=== PATIENT | male | born 1940 | race Caucasian/White ===

== ENCOUNTER 2018-08-15 10:34 | Inpatient (IN) ==
[2018-08-15] MEDS ORDERED: ALBUTEROL 2.5 MG/3 ML NEB RESP TX STA (10:53)
[2018-08-15 11:25] LABS: Basophils % 0.2 % (0.0-0.8); Eosinophils % 0.2 % (0.00-10.9); Hematocrit 36.9 VOL% (42.0-52.0); Hemoglobin 12.7 GM/DL (14.0-18.0); Immature Granulocytes % 0.3 %; Immature Granulocytes Absolute 0.03 #; Lymphocytes # 1.4 10*3/uL (1.4-4.0); Lymphocytes % 13.9 % (21.2-54.2); Mean Corpuscular HGB Conc 34.4 GM/DL (32-36); Mean Corpuscular Hemoglobin 33 PG (27-34); Mean Corpuscular Volume 96.9 FL (87-102); Monocytes # 1.4 10*3/uL (0.11-0.8); Monocytes % 13.4 % (1.7-12.7); Neutrophils # 7.4 10*3/uL (1.4-7.4); Platelet Count 129 T/CUMM (130-400); Red Blood Count 3.81 MC/CUMM (3.8-5.5); Red Cell Distribution Width 12.1 % (9.3-17.3); White Blood Count 10.3 T/CUMM (4-12)
[2018-08-15 11:33] LABS: INR 1.1; PT Patient Result 11.8 SECS; Partial Thromboplastin Time 26.8 SECS (0-40)
[2018-08-15 11:44] LABS: Albumin 3.3 G/DL (3.4-5.0); Bilirubin,Total 0.7 MG/DL (0.2-1.0); Calcium 9.7 MG/DL (8.5-10.1); Osmolality,Calculated 276.8 MOS/KG (273-304); Total Protein 6.3 G/DL (6.4-8.3)
[2018-08-15] MEDS ORDERED: LEVOFLOXACIN INJ 500 MG in PREMIX 1 EACH IV STA (12:52)
[2018-08-15] MEDS ORDERED: methylPREDNISolone SOD SUC 125 MG/2 ML VIAL IV STA (12:52)
[2018-08-15] MEDS ORDERED: cefTRIAXone 1,000 MG in SODIUM CHLORIDE 0.9% 100 ML IV SCH (14:30)
[2018-08-15] MEDS ORDERED: diphenhydrAMINE CAP 25 MG CAPSULE PO PRN (14:32)
[2018-08-15] MEDS ORDERED: ACETAMINOPHEN 325 MG TABLET PO PRN (14:32)
[2018-08-15] MEDS ORDERED: ONDANSETRON 4 MG/2 ML VIAL IV PRN (14:32)
[2018-08-15] MEDS ORDERED: ACETAMINOPHEN 500 MG TABLET PO PRN (14:32)
[2018-08-15 15:13] LABS: Risk Ratio 2.52; VLDL CHOLESTEROL 27.2 MG/DL
[2018-08-15] MEDS: methylPREDNISolone SOD SUC 40 MG/1 ML VIAL IV SCH ×2 (15:20→21:46)
[2018-08-15] MEDS: SODIUM CHLORIDE 0.9% 1,000 ML IV SCH (16:12)
[2018-08-15] MEDS: ASPIRIN EC 81 MG TABLET PO SCH (16:16)
[2018-08-15] MEDS: HEPARIN 5,000 UNIT/1 ML VIAL SUBCUT SCH ×2 (16:17→22:54)
[2018-08-15] MEDS: AZITHROMYCIN INJ 500 MG in SODIUM CHLORIDE 0.9% 250 ML IV SCH (16:51)
[2018-08-15] MEDS: ALBUTEROL/IPRATROPIUM 3 ML NEB RESP TX SCH (20:05)
[2018-08-15] MEDS: MONTELUKAST 10 MG TABLET PO SCH (21:45)
[2018-08-15] MEDS: traZODone 50 MG TABLET PO SCH (21:45)
[2018-08-15] MEDS: DOCUSATE SODIUM 100 MG CAPSULE PO SCH (21:45)
[2018-08-15] MEDS: LISINOPRIL 10 MG TABLET PO SCH (21:45)
[2018-08-15] MEDS: guaiFENesin/DM ER 600-30 MG TABLET PO SCH (21:45)
[2018-08-15] MEDS: ESCITALOPRAM 10 MG TABLET PO SCH (21:46)
[2018-08-15] MEDS: ATORVASTATIN 80 MG TABLET PO SCH (21:46)
[2018-08-16] MEDS: ALBUTEROL/IPRATROPIUM 3 ML NEB RESP TX SCH ×4 (00:48→19:51)
[2018-08-16] MEDS: cefTRIAXone 1,000 MG in SYRINGE 1 EACH IV SCH ×2 (04:16→16:30)
[2018-08-16 06:21] LABS: Basophils % 0.2 % (0.0-0.8); Hemoglobin 11.4 GM/DL (14.0-18.0); Immature Granulocytes % 0.9 %; Lymphocytes # 1.3 10*3/uL (1.4-4.0); Lymphocytes % 11.4 % (21.2-54.2); Mean Corpuscular HGB Conc 33.5 GM/DL (32-36); Mean Corpuscular Hemoglobin 33 PG (27-34); Mean Corpuscular Volume 97.4 FL (87-102); Mean Platelet Volume 10.7 FL (9.6-12.0); Monocytes # 0.7 10*3/uL (0.11-0.8); Monocytes % 5.9 % (1.7-12.7); Neutrophils # 9.6 10*3/uL (1.4-7.4); Neutrophils % 81.6 % (38.7-73.9); Platelet Count 130 T/CUMM (130-400); Red Blood Count 3.49 MC/CUMM (3.8-5.5); Red Cell Distribution Width 12.1 % (9.3-17.3); White Blood Count 11.8 T/CUMM (4-12)
[2018-08-16] MEDS: methylPREDNISolone SOD SUC 40 MG/1 ML VIAL IV SCH ×3 (06:29→23:28)
[2018-08-16] MEDS: SODIUM CHLORIDE 0.9% 1,000 ML IV SCH (06:36)
[2018-08-16 06:52] LABS: Albumin 2.8 G/DL (3.4-5.0); Bilirubin,Total 0.4 MG/DL (0.2-1.0); Calcium 10.1 MG/DL (8.5-10.1); Osmolality,Calculated 282.7 MOS/KG (273-304); Potassium 4.6 MMOL/L (3.5-5.1); Total Protein 6.4 G/DL (6.4-8.3)
[2018-08-16 07:14] LABS: Thyroid Stimulating Hormone 0.29 uIU/ml (0.358-3.74)
[2018-08-16] MEDS: PANTOPRAZOLE 40 MG TABLET PO SCH (09:22)
[2018-08-16] MEDS: DOCUSATE SODIUM 100 MG CAPSULE PO SCH ×2 (09:22→22:26)
[2018-08-16] MEDS: ASPIRIN EC 81 MG TABLET PO SCH (09:22)
[2018-08-16] MEDS: guaiFENesin/DM ER 600-30 MG TABLET PO SCH ×2 (09:22→23:27)
[2018-08-16] MEDS: HEPARIN 5,000 UNIT/1 ML VIAL SUBCUT SCH ×3 (09:42→23:29)
[2018-08-16] MEDS ORDERED: VANCOMYCIN INJ 1,250 MG in SODIUM CHLORIDE 0.9% 250 ML IV SCH (10:00)
[2018-08-16] MEDS: VANCOMYCIN INJ 1,500 MG in SODIUM CHLORIDE 0.9% 500 ML IV SCH ×2 (11:32→23:29)
[2018-08-16] MEDS: BUDESONIDE/FORMOTEROL 80-4.5 INHALER 6.9 GM INH SCH ×2 (13:15→22:27)
[2018-08-16] MEDS ORDERED: IPRATROPIUM 500 MCG/2.5 ML NEB RESP TX PRN (14:00)
[2018-08-16] MEDS: AZITHROMYCIN INJ 500 MG in SODIUM CHLORIDE 0.9% 250 ML IV SCH (14:24)
[2018-08-16] MEDS: MONTELUKAST 10 MG TABLET PO SCH (20:25)
[2018-08-16] MEDS: traZODone 50 MG TABLET PO SCH (22:26)
[2018-08-16] MEDS: ESCITALOPRAM 10 MG TABLET PO SCH (22:26)
[2018-08-16] MEDS: ATORVASTATIN 80 MG TABLET PO SCH (22:27)
[2018-08-16] MEDS: LISINOPRIL 10 MG TABLET PO SCH (22:27)
[2018-08-17] MEDS: SODIUM CHLORIDE 0.9% 1,000 ML IV SCH ×2 (00:24→12:55)
[2018-08-17] MEDS: ALBUTEROL/IPRATROPIUM 3 ML NEB RESP TX SCH ×3 (01:40→13:42)
[2018-08-17] MEDS: cefTRIAXone 1,000 MG in SYRINGE 1 EACH IV SCH (03:24)
[2018-08-17 06:48] LABS: Basophils % 0.1 % (0.0-0.8); Hematocrit 30.9 VOL% (42.0-52.0); Hemoglobin 10.3 GM/DL (14.0-18.0); Immature Granulocytes % 1.1 %; Immature Granulocytes Absolute 0.13 #; Lymphocytes # 0.7 10*3/uL (1.4-4.0); Mean Corpuscular HGB Conc 33.3 GM/DL (32-36); Mean Corpuscular Hemoglobin 33 PG (27-34); Mean Platelet Volume 10.7 FL (9.6-12.0); Monocytes # 0.9 10*3/uL (0.11-0.8); Monocytes % 7.6 % (1.7-12.7); Neutrophils # 10.4 10*3/uL (1.4-7.4); Neutrophils % 85.2 % (38.7-73.9); Platelet Count 141 T/CUMM (130-400); Red Blood Count 3.12 MC/CUMM (3.8-5.5); Red Cell Distribution Width 12.6 % (9.3-17.3); White Blood Count 12.2 T/CUMM (4-12)
[2018-08-17] MEDS: methylPREDNISolone SOD SUC 40 MG/1 ML VIAL IV SCH ×2 (06:52→15:46)
[2018-08-17] MEDS: HEPARIN 5,000 UNIT/1 ML VIAL SUBCUT SCH ×2 (06:55→15:46)
[2018-08-17 07:18] LABS: Albumin 2.6 G/DL (3.4-5.0); Bilirubin,Total 0.6 MG/DL (0.2-1.0); Calcium 9.3 MG/DL (8.5-10.1); Osmolality,Calculated 285.4 MOS/KG (273-304); Potassium 4.6 MMOL/L (3.5-5.1); Total Protein 5.7 G/DL (6.4-8.3)
[2018-08-17 07:36] LABS: Thyroid Stimulating Hormone 0.3 uIU/ml (0.358-3.74)
[2018-08-17] MEDS ORDERED: AZITHROMYCIN 250 MG TABLET PO SCH (09:00)
[2018-08-17] MEDS: DOCUSATE SODIUM 100 MG CAPSULE PO SCH (09:22)
[2018-08-17] MEDS: PANTOPRAZOLE 40 MG TABLET PO SCH (09:22)
[2018-08-17] MEDS: ASPIRIN EC 81 MG TABLET PO SCH (09:22)
[2018-08-17] MEDS: BUDESONIDE/FORMOTEROL 80-4.5 INHALER 6.9 GM INH SCH (09:23)
[2018-08-17] MEDS: VANCOMYCIN INJ 1,500 MG in SODIUM CHLORIDE 0.9% 500 ML IV SCH (09:27)
[2018-08-17] MEDS ORDERED: FINASTERIDE 5 MG TABLET PO SCH (12:00)
[2018-08-17] MEDS: guaiFENesin/DM ER 600-30 MG TABLET PO SCH (12:55)
[2018-08-17] MEDS ORDERED: NICOTINE 21 MG/24 HR PATCH TRANSDERM SCH (13:30)
[2018-08-17] MEDS ORDERED: DOCUSATE SODIUM 100 MG CAPSULE PO SCH (13:30)
[2018-08-17 15:00] VITALS: BP 104/60
[2018-08-17] MEDS ORDERED: TAMSULOSIN 0.4 MG CAPSULE PO SCH (21:00)
[2018-08-18] MEDS ORDERED: POLYETHYLENE GLYCOL POWDER 17 GM PACK PO SCH (09:00)
[2018-08-18] MEDS ORDERED: LEVOFLOXACIN 500 MG TABLET PO SCH (09:00)
== END 2018-08-17 16:15 | disposition home or self-care (01) | DRG 190 ==
LOC: N.ED 10:34 → N.EDINP 12:55 → N.5E 14:39
PROVIDERS: ADMIT Hospitalist; ATTEND Hospitalist

== ENCOUNTER 2019-10-16 08:51 | Inpatient (IN) ==
[2019-10-16] MEDS ORDERED: MORPHINE 4 MG/1 ML VIAL IV STA ×3 (09:14→09:41)
[2019-10-16] MEDS ORDERED: ONDANSETRON 4 MG/2 ML VIAL IV STA (09:16)
[2019-10-16] MEDS ORDERED: ceFAZolin 1,000 MG VIAL ONE (09:20)
[2019-10-16] MEDS ORDERED: MORPHINE 10 MG/1 ML VIAL ONE (09:21)
[2019-10-16] MEDS ORDERED: ONDANSETRON 4 MG/2 ML VIAL ONE (09:21)
[2019-10-16] MEDS: LACTATED RINGERS 1,000 ML IV SCH ×2 (09:25→13:00)
[2019-10-16 09:33] LABS: Basophils % 0.8 % (0.0-0.8); Eosinophils # 0.1 10*3/uL (0.0-0.87); Eosinophils % 2.5 % (0.00-10.9); Hematocrit 37.6 VOL% (42.0-52.0); Hemoglobin 12.8 GM/DL (14.0-18.0); Immature Granulocytes % 0.5 %; Immature Granulocytes Absolute 0.02 #; Lymphocytes # 0.7 10*3/uL (1.4-4.0); Lymphocytes % 19.3 % (21.2-54.2); Mean Platelet Volume 9.8 FL (9.6-12.0); Monocytes % 22.1 % (1.7-12.7); Neutrophils % 54.8 % (38.7-73.9); Platelet Count 180 T/CUMM (130-400); Red Blood Count 3.76 MC/CUMM (3.8-5.5); White Blood Count 3.7 T/CUMM (4-12)
[2019-10-16 09:54] LABS: Calcium 9.7 MG/DL (8.5-10.1); Osmolality,Calculated 274.8 MOS/KG (273-304)
[2019-10-16 09:54] LABS: Band Neutrophils 4 % (0-10); Eosinophils 4 % (0-10); Hypochromasia 1+; Lymphocytes 19 % (20-55); Platelet Estimate Adequate; Segmented Neutrophils 52 % (50-85); Total Cells Counted 100
[2019-10-16] MEDS ORDERED: MEPERIDINE 25 MG/1 ML VIAL ONE (10:01)
[2019-10-16] MEDS ORDERED: LORazepam 2 MG/1 ML VIAL ONE (10:02)
[2019-10-16] MEDS ORDERED: LORazepam 2 MG/1 ML VIAL IV STA (10:10)
[2019-10-16] MEDS ORDERED: MEPERIDINE 25 MG/1 ML VIAL IV STA (10:10)
[2019-10-16] MEDS ORDERED: KETOROLAC 15 MG/1 ML VIAL IV PRN (10:58)
[2019-10-16] MEDS ORDERED: ONDANSETRON 4 MG/2 ML VIAL IV PRN (10:58)
[2019-10-16] MEDS ORDERED: diphenhydrAMINE CAP 25 MG CAPSULE PO PRN (10:58)
[2019-10-16] MEDS ORDERED: MAGNESIUM HYDROXIDE SUSP 30 ML UDCUP PO PRN (10:58)
[2019-10-16] MEDS ORDERED: MORPHINE 4 MG/1 ML VIAL IV PRN ×2 (10:58)
[2019-10-16] MEDS ORDERED: fentaNYL 75 MCG/HR PATCH TRANSDERM SCH (11:00)
[2019-10-16] MEDS ORDERED: LACTATED RINGERS 1,000 ML IV SCH (11:00)
[2019-10-16] MEDS ORDERED: BACITRACIN OINT 0.9 GM PACK TOP ONE (12:41)
[2019-10-16] MEDS ORDERED: ROPIVACAINE 0.5% 30 ML VIAL ONE (13:10)
[2019-10-16] MEDS ORDERED: DEXAMETHASONE 4 MG/1 ML VIAL ONE (13:10)
[2019-10-16] MEDS ORDERED: ACETAMINOPHEN 1,000 MG/100 ML VIAL IV ONE (13:33)
[2019-10-16] MEDS ORDERED: propofoL 200 MG/20 ML VIAL IV ONE (13:33)
[2019-10-16] MEDS ORDERED: LIDOCAINE 2% 5 ML VIAL ONE (13:33)
[2019-10-16] MEDS ORDERED: SUCCINYLCHOLINE 200 MG/10 ML VIAL ONE (13:33)
[2019-10-16] MEDS ORDERED: ROCURONIUM 100 MG/10 ML VIAL IV ONE (13:33)
[2019-10-16] MEDS ORDERED: SEVOFLURANE 1 UNIT/15 MINUTE INH ONE (13:34)
[2019-10-16] MEDS ORDERED: ePHEDrine 50 MG/ML AMP ONE (13:34)
[2019-10-16] MEDS ORDERED: LACTATED RINGERS 1,000 ML IV ONE (13:34)
[2019-10-16] MEDS: ceFAZolin 1,000 MG in SYRINGE 1 EACH IV SCH (16:49)
[2019-10-16] MEDS ORDERED: traZODone 50 MG TABLET PO SCH (21:00)
[2019-10-16] MEDS ORDERED: LENALIDOMIDE 15 MG PO SCH (21:00)
[2019-10-16] MEDS ORDERED: ATORVASTATIN 80 MG TABLET PO SCH (21:00)
[2019-10-16] MEDS: VENLAFAXINE 75 MG TABLET PO SCH (21:32)
[2019-10-17] MEDS: ceFAZolin 1,000 MG in SYRINGE 1 EACH IV SCH (01:00)
[2019-10-17 06:17] LABS: Eosinophils % 0.4 % (0.00-10.9); Hematocrit 32.4 VOL% (42.0-52.0); Hemoglobin 10.8 GM/DL (14.0-18.0); Immature Granulocytes % 0.8 %; Immature Granulocytes Absolute 0.02 #; Lymphocytes # 0.4 10*3/uL (1.4-4.0); Lymphocytes % 17.1 % (21.2-54.2); Mean Corpuscular HGB Conc 33.3 GM/DL (32-36); Mean Corpuscular Volume 101.3 FL (87-102); Mean Platelet Volume 10.2 FL (9.6-12.0); Monocytes % 19.5 % (1.7-12.7); Neutrophils % 62.2 % (38.7-73.9); Platelet Count 143 T/CUMM (130-400); Red Cell Distribution Width 15.7 % (9.3-17.3); White Blood Count 2.5 T/CUMM (4-12)
[2019-10-17 06:39] LABS: Band Neutrophils 3 % (0-10); Eosinophils 2 % (0-10); Hypochromasia 1+; Lymphocytes 14 % (20-55); Ovalocytes Slight; Platelet Estimate Adequate; Segmented Neutrophils 62 % (50-85); Total Cells Counted 100
[2019-10-17 07:58] VITALS: BP 151/83
[2019-10-17] MEDS: VENLAFAXINE 75 MG TABLET PO SCH (08:17)
== END 2019-10-17 10:35 | disposition home or self-care (01) | DRG 493 ==
LOC: N.OR 08:51 → N.SDSINP 09:00 → N.3E 14:22
PROVIDERS: ADMIT Orthopaedic Surgery; ATTEND Orthopaedic Surgery